=== PATIENT | female | born 2000 | race Two or more races ===

== ENCOUNTER 2021-09-13 13:58 | Outpatient (CLI) | payer OTHER | END 2021-09-13 15:02 | disposition home or self-care (01) | LOC: PRENATAL 13:58 | PROVIDERS: ATTEND Obstetrics & Gynecology Maternal & Fetal Medicine | DX: O35.0XX0 Maternal care for (suspected) central nervous system malformation in fetus, not applicable or unspecified (principal); O35.3XX0 Maternal care for (suspected) damage to fetus from viral disease in mother, not applicable or unspecified; Z91.013 Allergy to seafood; Z3A.22 22 weeks gestation of pregnancy ==

== ENCOUNTER 2021-10-24 11:28 | Emergency (ER) | payer OTHER ==
[~2021-10-24] VITALS: Ht 157.5 cm; Wt 99.3 kg
[2021-10-24] MEDS ORDERED: PRENATAL + DHA1 EAC1 PO (12:05)
== END 2021-10-24 14:59 | disposition home or self-care (01) ==
LOC: EMR PED 11:28 → ER 11:31 → EMR PED 11:31 → ER 14:59
DX: O99.513 Diseases of the respiratory system complicating pregnancy, third trimester (principal); J03.90 Acute tonsillitis, unspecified; Z3A.20 20 weeks gestation of pregnancy

== ENCOUNTER 2021-11-22 10:27 | Outpatient (CLI) | payer OTHER ==
[~2021-11-22 10:27] MED LIST: PRENATAL + DHA1 EAC1 PO
== END 2021-11-22 11:52 | disposition home or self-care (01) ==
LOC: PRENATAL 10:27
PROVIDERS: ATTEND Obstetrics & Gynecology Maternal & Fetal Medicine
DX: O35.0XX0 Maternal care for (suspected) central nervous system malformation in fetus, not applicable or unspecified (principal); O35.3XX0 Maternal care for (suspected) damage to fetus from viral disease in mother, not applicable or unspecified; Z3A.32 32 weeks gestation of pregnancy; Z91.013 Allergy to seafood

== ENCOUNTER 2021-12-20 13:47 | Outpatient (CLI) | payer OTHER | END 2021-12-20 20:22 | disposition home or self-care (01) | LOC: OBS/DEL 13:47 | PROVIDERS: ATTEND Obstetrics & Gynecology | DX: O16.3 Unspecified maternal hypertension, third trimester (principal); O26.893 Other specified pregnancy related conditions, third trimester; Z3A.36 36 weeks gestation of pregnancy ==

== ENCOUNTER 2021-12-30 07:43 | Inpatient (IN) | payer OTHER ==
[~2021-12-30] VITALS: Ht 157.5 cm; Wt 2.3 kg
== END 2022-01-03 14:10 | disposition home or self-care (01) | DRG 788 ==
LOC: OB/GYN 07:43 → LDR 07:43 → O/R 12-31 14:50 → OB/GYN 12-31 15:52
PROVIDERS: ADMIT Obstetrics & Gynecology; ATTEND Obstetrics & Gynecology
PROC: 4A1HXCZ Monitoring of Products of Conception, Cardiac Rate, External Approach (ICD-10-PCS; 2021-12-30)
PROC: 10D00Z1 Extraction of Products of Conception, Low, Open Approach (ICD-10-PCS; principal; 2021-12-31 14:15)
DX: O14.04 Mild to moderate pre-eclampsia, complicating childbirth (principal); O62.1 Secondary uterine inertia; O33.1 Maternal care for disproportion due to generally contracted pelvis; O64.0XX0 Obstructed labor due to incomplete rotation of fetal head, not applicable or unspecified; Z3A.37 37 weeks gestation of pregnancy; Z37.0 Single live birth

== ENCOUNTER 2022-02-23 16:13 | Emergency (ER) | payer OTHER ==
[~2022-02-23] VITALS: Ht 50.8 cm; Wt 4.5 kg
== END 2022-02-23 17:05 | disposition home or self-care (01) ==
LOC: EMR PED 16:13
DX: R09.81 Nasal congestion (principal); Z91.013 Allergy to seafood

== ENCOUNTER 2022-11-18 14:13 | Inpatient (IN) | payer OTHER ==
[~2022-11-18] VITALS: Ht 157.5 cm; Wt 90.7 kg
[2022-11-26] MEDS ORDERED: MEDROLPACK PO (17:32)
== END 2022-11-26 19:54 | disposition home or self-care (01) | DRG 202 ==
LOC: ER → MEDI 22:11 → SEC-K 11-19 07:34 → MEDI 11-19 13:09
PROVIDERS: General Practice; Internal Medicine Infectious Disease; ADMIT Internal Medicine; ATTEND Internal Medicine
PROC: BB24ZZZ Computerized Tomography (CT Scan) of Bilateral Lungs (ICD-10-PCS; principal; 2022-11-19)
PROC: 4A12X4Z Monitoring of Cardiac Electrical Activity, External Approach (ICD-10-PCS; 2022-11-19)
PROC: 3E0F7SF Introduction of Other Gas into Respiratory Tract, Via Natural or Artificial Opening (ICD-10-PCS; 2022-11-19)
PROC: 3E0F7GC Introduction of Other Therapeutic Substance into Respiratory Tract, Via Natural or Artificial Opening (ICD-10-PCS; 2022-11-23)
DX: J45.41 Moderate persistent asthma with (acute) exacerbation (principal); B37.1 Pulmonary candidiasis; J90 Pleural effusion, not elsewhere classified; J98.11 Atelectasis; R00.0 Tachycardia, unspecified

== ENCOUNTER 2023-03-25 20:24 | Emergency (ER) | payer OTHER ==
[~2023-03-25] VITALS: Ht 157.5 cm; Wt 81.6 kg
[~2023-03-25 20:24] MED LIST changes: +MEDROLPACK PO
== END 2023-03-25 22:40 | disposition home or self-care (01) ==
LOC: ER 20:26
DX: J06.9 Acute upper respiratory infection, unspecified (principal)

== ENCOUNTER 2023-06-16 11:03 | Emergency (ER) | payer OTHER ==
[~2023-06-16] VITALS: Ht 157.5 cm; Wt 86.2 kg
[2023-06-16] MEDS ORDERED: FAMOTIDINE/PF 20 MG/2 ML VIAL IV PUSH STA (12:12)
[2023-06-16] MEDS ORDERED: ONDANSETRON HCL 2 MG/ML VIAL IV STA (12:12)
[2023-06-16] MEDS ORDERED: DEXTROSE 5 % AND 0.9 % NACL 500 ML IV STA (12:13)
[2023-06-16 14:27] LABS: CALCIUM 9.1 mg/dL (8.5-10.1); CREATININE SERUM 0.66 mg/dL (0.55-1.02); GFR 111.99; POTASSIUM 3.85 mEq/L (3.5-5.1)
[2023-06-16 16:04] LABS: URINE APPEARANCE Cloudy; URINE BILIRRUBIN Negative (NEGATIVE); URINE BLOOD Negative; URINE COLOR Yellow; URINE GLUCOSE Negative (NEGATIVE); URINE LEUKOCYTE Small; URINE NITRATE Negative; URINE PROTEIN Trace (NEGATIVE); URINE UROBILINOGEN 0.2 E.U./dl
[2023-06-16 16:05] LABS: URINE EPITHELIAL CELLS 38.9 uL (0.0-38.8); URINE RBC 9.4 uL (0.0-20.8); URINE WBC 56.7 uL (0.0-23.2)
[2023-06-16] MEDS ORDERED: CEFTRIAXONE SODIUM 1,000 MG VIAL IM STA (16:08)
[2023-06-16] MEDS ORDERED: DUI500 PO (16:16)
[2023-06-16] MEDS ORDERED: PEPCID AC20 MG PO (16:18)
[2023-06-16] MEDS ORDERED: ACID REDUCER20 M1 PO (16:18)
== END 2023-06-16 16:21 | disposition home or self-care (01) ==
LOC: ER 11:03
PROVIDERS: Emergency Medicine
DX: N39.0 Urinary tract infection, site not specified (principal); K29.70 Gastritis, unspecified, without bleeding; Z91.013 Allergy to seafood